=== PATIENT | male | born 1995 | race Hispanic/Latino ===

== ENCOUNTER → 2024-02-20 | Outpatient (CLI) | payer BC ==
[2024-02-20 16:40] LABS: ALBUMIN 3.9 g/dL (3.5-5.0); BILIRUBIN,TOTAL 0.8 mg/dL (0.2-1.0); CREATININE 0.8 mg/dL (0.5-1.3); MAGNESIUM 2.2 mg/dL (1.80-2.40); THYROID STIMULATING HORMONE 1.73 uIU/mL (0.36-3.74)
== END | disposition home or self-care (01) ==
LOC: LAB 02-10 13:37
PROVIDERS: ATTEND Internal Medicine Cardiovascular Disease
DX: R00.2 Palpitations (principal)
CPT/HCPCS: 36415; 80053; 83735; 84443

== ENCOUNTER → 2024-03-27 | Outpatient (CLI) | payer BC | END | disposition home or self-care (01) | LOC: SHCH 08:51 | PROVIDERS: ATTEND Internal Medicine Cardiovascular Disease | DX: R01.1 Cardiac murmur, unspecified (principal); E66.9 Obesity, unspecified | CPT/HCPCS: 93306 ==

== ENCOUNTER 2024-10-23 14:17 | Emergency (ER) | payer BC ==
[~2024-10-23] VITALS: Ht 177.8 cm; Wt 122.5 kg
[2024-10-23 15:56] LABS: BASOPHILS # (AUTO) 0.04 K/uL (0.00-0.20); BASOPHILS % (AUTO) 0.5 % (0.0-5.0); EOSINOPHILS % (AUTO) 1.2 % (0.0-8.0); IMMATURE GRANULOCYTE ABSOLUTE 0.03 K/uL (0-1); LYMPHOCYTES # (AUTO) 1.6 K/uL (1.0-4.8); LYMPHOCYTES % (AUTO) 18.7 % (21.0-51.0); MEAN CORPUSCULAR HEMOGLOBIN 31.4 pg (27.0-33.0); MEAN CORPUSCULAR HGB CONC 33.4 g/dL (32.0-36.0); MEAN CORPUSCULAR VOLUME 93.8 fL (79-99); MONOCYTES # (AUTO) 1.3 K/uL (0.1-1.0); MONOCYTES % (AUTO) 14.9 % (3.0-13.0); NEUTROPHILS # (AUTO) 5.5 K/uL (1.8-7.7); NEUTROPHILS % (AUTO) 64.3 % (40.0-77.0); PLATELET COUNT (AUTO) 332 K/uL (130-400); RED BLOOD CELL COUNT(AUTO) 4.37 MIL/uL (4.50-6.20); RED CELL DISTRIBUTION WIDTH 11.9 % (11.0-15.5); WHITE BLOOD COUNT (AUTO) 8.5 K/uL (4.8-10.8)
[2024-10-23 16:03] LABS: APPEARANCE,URINE CLEAR (CLEAR); BILIRUBIN,URINE 2 mg/dL (NEGATIVE); COLOR,URINE DARK-YELLOW (YELLOW); GLUCOSE, URINE (UA) NEGATIVE (NEGATIVE); KETONES,URINE 150 mg/dL (NEGATIVE); LEUKOCYTE ESTERASE ,URINE NEGATIVE Leu/uL (NEGATIVE); NITRATE,URINE NEGATIVE (NEGATIVE); OCCULT BLOOD,URINE NEGATIVE (NEGATIVE); PROTEIN,URINE 70 mg/dL (NEGATIVE); UROBILINOGEN,URINE 12 mg/dL (0.2-1.0)
[2024-10-23 16:13] LABS: BACTERIA,URINE RARE /HPF (None Seen); MUCUS,URINE MANY LPF (None Seen); SQUAMOUS EPITHELIAL CELL,UR RARE /HPF (0-2); WBC,URINE 0-1 /HPF (0-1)
[2024-10-23 16:21] LABS: CREATININE 0.8 mg/dL (0.5-1.3); POTASSIUM 3.4 mmol/L (3.5-5.1)
[2024-10-23 16:30] LABS: ALBUMIN 3.3 g/dL (3.5-5.0); BILIRUBIN,DIRECT 0.9 mg/dL (0.0-0.3); BILIRUBIN,TOTAL 2.1 mg/dL (0.2-1.0); TOTAL PROTEIN, SERUM 7.9 g/dL (6.0-8.3)
[2024-10-23 16:47] LABS: INR 1.04 (0.85-1.15); PROTHROMBIN TIME 11.6 SEC (9.6-11.6)
[2024-10-23 16:48] LABS: PARTIAL THROMBOPLASTIN TIME 31.6 SEC (26.3-35.5)
[2024-10-23] MEDS: ondanSETRON 4MG INJ IVP ONE (17:08)
[2024-10-23] MEDS: FAMOTIDINE 20MG VIAL IV ONE (17:08)
[2024-10-23] MEDS: morPHINE 2 MG SYG IVP ONE (17:08)
--- NOTE | 2024-10-23 18:42 | ERN ---
ED Note History of Present Illness Stated Complaint: MULT COMP, PAIN NEAR PANC Chief Complaint: Abdominal Pain Time Seen by MD: 17:25 Time Seen by Midlevel: 17:25 Dictation: Patient is a 29-year-old male with a history of gastric sleeve onset three weeks ago by Dr. Jackson who presents to the emergency department with complaints of epigastric pain, onset two days ago. Patient reports he had nausea and vomiting two days ago but none currently. Denies any diarrhea or constipation. Reports he was seen at [facility] ER and was told he had an inflamed pancreas. Today he saw Dr. Valencia and they did not ultrasound he said it was still inflamed but they gave him something for the medication isn't him home. Patient denies any fevers. Allergies: Coded Allergies: No Known Drug Allergies (Unverified Allergy, Unknown, 10/23/24) Home Meds Active Scripts Lidocaine (Lidocaine Pain Relief) 4 % Adh..patch, 1 PATCH TP DAILY for 10 Days, #10 PATCH 0 Refills Prov:CACHORRO COLEMAN FORMULATION TECHNICIAN 10/24/24 Past Medical History Past Medical History: No Pertinent History Surgical History: Bariatric Surgery RN Note Reviewed/Agreed w/PFSH: Yes Review of System Dictation Constitutional: Negative for fever,chills, and weight loss Eyes: Negative for injury, pain,redness, and discharge ENT: Negative for injury,pain or swelling Cardiovascular: Negative for chest pain, palpitations, and edema Respiratory: Negative for shortness of breath, cough, and wheezing, Abdomen/GI: Negative for nausea, vomiting, diarrhea, and constipation positive for abdominal pain Back: Negative for injury and pain : Negative for injury, bleeding and discharge MS/Extremity: Negative for injury and deformity Skin: Negative for rash, and discoloration Neuro: Negative for headache, weakness, numbness, tingling, and seizure Psych: Negative for suicide ideation, homicidal ideation, and hallucinations Initial Vital Sign VS Vital Signs Date Time Temp Pulse Resp B/P (MAP) Pulse Ox O2 Delivery O2 Flow Rate FiO2 10/23/24 15:18 98.6 85 20 135/94 96 Room Air 0 10/23/24 17:09 21 Physical Exam Dictation Vital Signs reviewed General Appearance: Alert, oriented x 3, no acute distress, well developed, nourished. Head and Face: non-traumatic. Eyes: PERRL, pink conjunctivas, eyelid no trauma, anterior chamber with arcus senilis. Ears: Pinnas intact and no signs of trauma or erythema ear canals clear and no discharge TM no erythema Nose: No discharge, no bleeding. Oropharynx: Mouth normal, tongue pink. pharynx clear,no erythema, tonsils no exudates, no abscesses noted, mucous membrane moist Neck: Supple, non-tender, no thyromegaly, no masses, no JVD, no bruits Breast:Deferred Chest:No tenderness, no crepitus, no paradoxical movement, no retractions Lungs:Clear, well-ventilated, symmetric, no rales, no wheezing, no rhonchi, no stridor, good breath sounds bilaterally Heart: Regular rate, regular rhythm, no murmur, no gallops Vascular: no peripheral edema, Abdomen: Soft, positive bowel sounds, nondistended, no guarding, nontender, no rebound, no masses no hepatomegaly, no splenomegaly, no Elizondo's sign, no hernias. Rectal: Deferred Genital: Deferred Neurological: Normal speech, motor function intact, sensory function intact Musculoskeletal: Neck nontender, full range of motion, back nontender, full range of motion, Extremities: nontender, full range of motion Skin: Color pink, dry, no turgor, no rash, no lacerations, no abrasions, no contusions. Lymphatic: Deferred Results (Laboratory/Radiology) Laboratory/Radiology Laboratory Tests Test 10/23/24 15:34 10/23/24 15:36 White Blood Count 8.5 K/uL (4.8-10.8) Red Blood Count 4.37 MIL/uL (4.50-6.20) L Hemoglobin 13.7 g/dL (14.0-18.0) L Hematocrit 41.0 % (42-54) L Mean Corpuscular Volume 93.8 fL (79-99) Mean Corpuscular Hemoglobin 31.4 pg (27.0-33.0) Mean Corpuscular Hemoglobin Concent 33.4 g/dL (32.0-36.0) Red Cell Distribution Width 11.9 % (11.0-15.5) Platelet Count 332 K/uL (130-400) Mean Platelet Volume 10.2 fL (7.5-10.5) Immature Granulocyte % (Auto) 0.4 % (0-1) Neutrophils (%) (Auto) 64.3 % (40.0-77.0) Lymphocytes (%) (Auto) 18.7 % (21.0-51.0) L Monocytes (%) (Auto) 14.9 % (3.0-13.0) H Eosinophils (%) (Auto) 1.2 % (0.0-8.0) Basophils (%) (Auto) 0.5 % (0.0-5.0) Neutrophils # (Auto) 5.5 K/uL (1.8-7.7) Lymphocytes # (Auto) 1.6 K/uL (1.0-4.8) Monocytes # (Auto) 1.3 K/uL (0.1-1.0) H Eosinophils # (Auto) 0.10 K/uL (0.00-0.70) Basophils # (Auto) 0.04 K/uL (0.00-0.20) Absolute Immature Granulocyte (auto 0.03 K/uL (0-1) Nucleated Red Blood Cells 0.0 % (0.0-0.19) Prothrombin Time 11.6 SEC (9.6-11.6) Prothromb Time International Ratio 1.04 (0.85-1.15) Activated Partial Thromboplast Time 31.6 SEC (26.3-35.5) Sodium Level 139 mmol/L (136-145) Potassium Level 3.4 mmol/L (3.5-5.1) L Chloride Level 100 mmol/L (101-111) L Carbon Dioxide Level 28 mmol/L (21-32) Blood Urea Nitrogen 7 mg/dL (7-18) Creatinine 0.8 mg/dL (0.5-1.3) Glomerular Filtration Rate Calc 123 mL/min (>90) Random Glucose 102 mg/dL (70-105) Lactic Acid Level 1.8 mmol/L (0.8-2.5) Total Calcium 9.3 mg/dL (8.5-10.1) Total Bilirubin 2.1 mg/dL (0.2-1.0) H Direct Bilirubin 0.9 mg/dL (0.0-0.3) H Aspartate Amino Transf (AST/SGOT) 33 U/L (10-37) Alanine Aminotransferase (ALT/SGPT) 46 U/L (12-78) Alkaline Phosphatase 110 U/L (50-136) Troponin I High Sensitivity 4 ng/L (4-75) Total Protein 7.9 g/dL (6.0-8.3) Albumin 3.3 g/dL (3.5-5.0) L Lipase 30 U/L (16-77) Urine Color DARK-YELLOW (YELLOW) Urine Appearance CLEAR (CLEAR) Urine pH 6.0 (5.0-8.0) Urine Specific [place] 1.038 (1.001-1.031) Urine Protein 70 mg/dL (NEGATIVE) H Urine Glucose (UA) NEGATIVE mg/dL (NEGATIVE) Urine Ketones 150 mg/dL (NEGATIVE) H Urine Occult Blood NEGATIVE (NEGATIVE) Urine Nitrate NEGATIVE (NEGATIVE) Urine Bilirubin 2 mg/dL (NEGATIVE) H Urine Urobilinogen 12 mg/dL (0.2-1.0) H Urine Leukocyte Esterase NEGATIVE [place]/uL Urine RBC 2-5 /HPF (0-1) H Urine WBC 0-1 /HPF (0-1) Urine Squamous Epithelial Cells RARE /HPF (0-2) Urine Bacteria RARE /HPF (None Seen) Urine Hyaline Casts 2-5 /LPF (0-1 /LPF) H REASON: Abdominal pain ORDERING PHYSICIAN: MARY CEDENO MD PROCEDURE: ABD PEL WO - CT ABDOMEN/PELVIS W/O CONTRAST Exam Type: CT ABDOMEN/PELVIS W/O CONTRAST Clinical Information: Abdominal pain Comparison: None CT Dose Index (CTDI): 10.20 mGy Dose Length Product (DLP): 530.00 total mGy-cm PROTOCOL: Routine noncontrast helical scanning of the abdomen and pelvis was performed at 5mm collimation. Findings: Right renal nonobstructing calculus is seen in the kidneys are otherwise unremarkable. The lung bases are clear. Bariatric surgical changes of the stomach which appears otherwise unremarkable. The spleen is unremarkable. It is not enlarged. The pancreas shows normal anatomy. It is not fatty replaced. It shows no lesions. The pancreatic duct is not dilated. The gallbladder is unremarkable. It shows no cholelithiasis. The gallbladder wall is normal in thickness. There is no pericholecystic fluid. The is no acute or chronic inflammation noted. The adrenal glands are unremarkable. There is no enlargement. No lesions are noted. The liver is unremarkable. It shows no focal masses. The appendix is unremarkable. It shows no evidence of inflammation. No appendicolith is seen. The small bowel is unremarkable. There is no evidence of dilatation to suggest obstruction. No evidence of adynamic ileus is seen. There is no small bowel wall thickening to suggest enteritis. The colon is unremarkable. The urinary bladder is unremarkable. There is no wall thickening to suggest tumor or inflammation. There are no intraluminal calculi. There are no diverticula. There is no evidence of chronic bladder outlet obstruction. There is no evidence of urinary bladder distention to suggest urinary retention. The other pelvic structures are unremarkable. The bony and vascular structures are unremarkable for the patient's age. IMPRESSION: NEGATIVE CT SCAN OF THE ABDOMEN AND PELVIS. NO RENAL STONES. NO ACUTE PATHOLOGY OR INFLAMMATION SEEN. This study was performed using dose reduction techniques to include automated exposure control and/or adjustment of the mA and/or kV according to patient size. Labs Reviewed?: Yes ED Course ED Course Orders Procedure Category Date Status Time Basic Metabolic Panel LAB 10/23/24 Complete 15:19 Cbc With Differential LAB 10/23/24 Complete 15:19 Hepatic Function Panel LAB 10/23/24 Complete 15:19 Lactic Acid LAB 10/23/24 Complete 15:19 Lipase LAB 10/23/24 Complete 15:19 Pt And Ptt LAB 10/23/24 Complete 15:19 Troponin I High LAB 10/23/24 Complete Sensitivity 15:19 Urinalysis LAB 10/23/24 Complete W/Microscopic 15:19 Ondansetron 4mg Inj PHA 10/23/24 Complete (Zofran 4mg Inj) 15:30 Morphine 2mg Syg PHA 10/23/24 Complete (Morphine 2mg Syg) 15:30 Famotidine 20mg Vial PHA 10/23/24 Complete (Pepcid 20mg Vial) 15:30 Ct Abdomen/Pelvis W/O CT 10/23/24 Resulted Contrast 18:05 Morphine 4mg Syg PHA 10/23/24 Complete (Morphine 4mg Syg) 20:00 Us Abdominal Ruq\Ltd US 10/23/24 Taken 21:16 Morphine 4mg Syg [facility] 10/23/24 Complete (Morphine 4mg Syg) 23:30 Ketorolac PHA 10/24/24 Complete Tromethamine 30mg/Ml 00:30 Orphenadrine Citrate PHA 10/24/24 Complete (Norflex) 01:00 Current Medications Medications (Trade) Dose Ordered Sig/Ezekiel Route PRN Reason Start Time Stop Time Status Last Admin Dose Admin Famotidine (Pepcid 20mg Vial) 20 mg ONCE ONCE IV 10/23/24 15:30 10/23/24 15:31 DC 10/23/24 17:08 Ketorolac Tromethamine (toRADol) 30 mg ONCE ONCE IVP 10/24/24 00:30 10/24/24 00:31 DC 10/24/24 00:25 Morphine Sulfate (morPHINE 2MG SYG) 2 mg ONCE ONCE IVP 10/23/24 15:30 10/23/24 15:31 DC 10/23/24 17:08 Morphine Sulfate (morPHINE 4MG SYG) 4 mg ONCE ONCE IVP 10/23/24 20:00 10/23/24 20:01 DC 10/23/24 20:03 Morphine Sulfate (morPHINE 4MG SYG) 4 mg ONCE ONCE IVP 10/23/24 23:30 10/23/24 23:31 DC 10/23/24 23:35 Ondansetron HCl (zoFRAN 4MG INJ) 4 mg ONCE ONCE IVP 10/23/24 15:30 10/23/24 15:31 DC 10/23/24 17:08 Orphenadrine Citrate (Norflex) 60 mg ONCE ONCE IM 10/24/24 01:00 10/24/24 01:01 DC 10/24/24 01:07 Vital Signs Date Time Temp Pulse Resp B/P (MAP) Pulse Ox O2 Delivery O2 Flow Rate FiO2 10/24/24 01:19 98.4 89 17 145/92 96 Room Air* 0 10/23/24 23:21 98.8 86 17 146/85 97 Room Air* 0 10/23/24 21:38 91 17 140/75 100 Room Air* 0 10/23/24 19:45 98.4 90 18 142/80 100 Room Air* 0 10/23/24 18:39 98.8 87 20 147/87 97 Room Air* 0 10/23/24 17:09 82 18 158/95 97 Room Air* 0 10/23/24 15:18 98.6 85 20 135/94 96 Room Air 0 Medical Decision Making MDM Patient is a 29-year-old male with a history of gastric sleeve onset three weeks ago by Dr. Jackson who presents to the emergency department with complaints of epigastric pain, onset two days ago. Patient reports he had nausea and vomiting two days ago but none currently. Denies any diarrhea or constipation. Reports he was seen at [facility] ER and was told he had an inflamed pancreas. Today he saw Dr. Jackson and they did not ultrasound he said it was still inflamed but they gave him something for the medication isn't him home. Patient denies any fevers. CBC showed no leukocytosis, mild normocytic anemia, chemistry showed mild hypokalemia, mild hypochloremia, urinalysis showed no UTI. CT abdomen showed right renal stone. No other acute pathology. Patient received medication in ER. Patient in no acute distress.reports feeling better. Nontoxic appearing. Will be discharged to follow up with the surgeon and PCP. Discussed case with who agrees patient can be discharge. Spoke to patient about results and the need to follow up with pcp and surgeon. Differential diagnosis: Bowel obstruction, sepsis, electrolyte imbalance, pancreatitis, cholecystectomy Need for hospitalization: Patient does not meet criteria for hospitalization. There are no social concerns with this patient. DX & DISP Disposition: Discharge Departure Impression: Primary Impression: Abdominal pain Additional Impression: Right renal stone Condition: Stable Scripts Methocarbamol (Robaxin) 750 Mg Tab 1 TAB PO TID for 5 Days, #15 TAB 0 Refills Prov: CACHORRO COLEMAN FORMULATION TECHNICIAN 10/24/24 Lidocaine (Lidocaine Pain Relief) 4 % Adh..patch 1 PATCH TP DAILY for 10 Days, #10 PATCH 0 Refills Prov: CACHORRO COLEMAN FORMULATION TECHNICIAN 10/24/24 Additional Instructions: Please follow up with your surgeon in 1-2 days. If symptoms worsen please return to ER. FOLLOW-UP WITH PRIMARY CARE PROVIDER IN 1 TO 2 DAYS. TAKE MEDICATIONS DIRECTED HERE IN THE EMERGENCY ROOM. OKAY TO CONTINUE HOME MEDICATIONS UNLESS OTHERWISE DISCUSSED DURING YOUR VISIT IN THE EMERGENCY ROOM TODAY. RETURN TO YOUR NEAREST EMERGENCY ROOM IF SYMPTOMS WORSEN OR IF THERE IS NO IMPROVEMENT. CALL 911 IF YOU NEED IMMEDIATE ASSISTANCE. TAKE TYLENOL OR MOTRIN [id number] NEEDED AND IF NO CONTRAINDICATIONS ARE PRESENT. INCREASE ORAL HYDRATION. A WOUND CULTURE OR URINE CULTURE WAS ORDERED HERE IN THE EMERGENCY ROOM DEPARTMENT PLEASE FOLLOW-UP WITH PRIMARY CARE PROVIDER AND ADVISE THEM TO GET REPEAT PORTS FROM OUR FACILITY. IF YOU HAD ANY ANDREIA WRAP/SPLINTS THAT WERE APPLIED HERE, PLEASE DO NOT REMOVE THEM UNTIL YOU SEE YOUR PRIMARY CARE OR SPECIALTY. Referrals: CINTHIA DE LA O (PCP) Time of Disposition: 00:13 I have examined patient, & reviewed all documents, & agreed W/ the Diagnosis, and Plan CACHORRO COLEMAN FORMULATION TECHNICIAN Oct 23, 2024 18:42
--- NOTE | 2024-10-23 19:29 | HMCIMG ---
Exam Type: CT ABDOMEN/PELVIS W/O CONTRAST Clinical Information: Abdominal pain Comparison: None CT Dose Index (CTDI): 10.20 mGy Dose Length Product (DLP): 530.00 total mGy-cm PROTOCOL: Routine noncontrast helical scanning of the abdomen and pelvis was performed at 5mm collimation. Findings: Right renal nonobstructing calculus is seen in the kidneys are otherwise unremarkable. The lung bases are clear. Bariatric surgical changes of the stomach which appears otherwise unremarkable. The spleen is unremarkable. It is not enlarged. The pancreas shows normal anatomy. It is not fatty replaced. It shows no lesions. The pancreatic duct is not dilated. The gallbladder is unremarkable. It shows no cholelithiasis. The gallbladder wall is normal in thickness. There is no pericholecystic fluid. The is no acute or chronic inflammation noted. The adrenal glands are unremarkable. There is no enlargement. No lesions are noted. The liver is unremarkable. It shows no focal masses. The appendix is unremarkable. It shows no evidence of inflammation. No appendicolith is seen. The small bowel is unremarkable. There is no evidence of dilatation to suggest obstruction. No evidence of adynamic ileus is seen. There is no small bowel wall thickening to suggest enteritis. The colon is unremarkable. The urinary bladder is unremarkable. There is no wall thickening to suggest tumor or inflammation. There are no intraluminal calculi. There are no diverticula. There is no evidence of chronic bladder outlet obstruction. There is no evidence of urinary bladder distention to suggest urinary retention. The other pelvic structures are unremarkable. The bony and vascular structures are unremarkable for the patient's age. IMPRESSION: NEGATIVE CT SCAN OF THE ABDOMEN AND PELVIS. NO RENAL STONES. NO ACUTE PATHOLOGY OR INFLAMMATION SEEN. This study was performed using dose reduction techniques to include automated exposure control and/or adjustment of the mA and/or kV according to patient size.
[2024-10-23] MEDS: morPHINE 4 MG SYG IVP ONE ×2 (20:03→23:35)
--- NOTE | 2024-10-23 22:33 | NUR ---
PATIENT STILL PENDING U/S, INCREASING PAIN IN BACK, PACING HALLWAY
[2024-10-24] MEDS: ketOROlac 30MG VIAL (30MG/ML) IVP ONE (00:25)
[2024-10-24] MEDS ORDERED: LIDO1ADH71 TP (00:53)
[2024-10-24] MEDS: ORPHENADRINE 60MG/2ML IM ONE (01:07)
[2024-10-24 01:19] VITALS: BP 145/92; PULSE 89; RESP 17; TEMP 98.4; O2SAT 96
[2024-10-24] MEDS ORDERED: METH-662 PO (01:28)
--- NOTE | 2024-10-24 08:22 | HMCIMG ---
Exam Type: Right upper quadrant abdominal ultrasound with hepatic color-flow Doppler Clinical Information: abd pain Comparison: none Findings: The liver shows fatty infiltration and is otherwise unremarkable. Doppler evaluation shows patent portal and hepatic veins. The gallbladder shows no significant abnormalities. Specifically, no calculi are seen. There is no evidence of acute or chronic cholecystitis. No bile duct dilatation is noted. The gallbladder wall measures 2 mm. The common bile duct measures 3 mm. The right kidney measures 11 x 6 cm, and shows no hydronephrosis or calculi, masses or other abnormalities. The pancreas is suboptimally visualized. IMPRESSION: FATTY LIVER INFILTRATION. OTHERWISE NORMAL RIGHT UPPER QUADRANT ABDOMINAL ULTRASOUND.
[2024-10-25] MEDS ORDERED: PANT40TA54 PO (04:47)
[2024-10-25] MEDS ORDERED: PROP20TA96 PO (04:47)
== END 2024-10-24 01:32 | disposition home or self-care (01) ==
LOC: EDH 14:17
DX: N20.0 Calculus of kidney (principal); Z79.899 Other long term (current) drug therapy; Z98.890 Other specified postprocedural states
CPT/HCPCS: 99285; 74176; 96374; 76705; 96375 ×2; 80076; 84484; 80048; 83690; 85025; 85610; 85730; 83605; 81001; 36415; 96376; 96372; J3490; J2270 ×3; J2405; J1885; J2360

== ENCOUNTER → 2025-04-07 | Outpatient (CLI) | payer BC ==
[~2025-04-07] MED LIST: LIDO1ADH71 TP; PANT40TA54 PO; PROP20TA96 PO
--- NOTE | 2025-04-07 10:04 | HMCIMG ---
Exam Type: US ABDOMINAL RUQ\E\LTD Clinical Information: portal vein thrombosis Comparison: None Findings: The liver is enlarged with coarse echotexture suggestive of cirrhosis. It measures 16.3 cm. There is partial thrombosis of the portal vein, further evidence of possible cirrhosis. Doppler evaluation shows patent portal and hepatic veins. The gallbladder shows evidence of cholelithiasis. There is no evidence of acute or chronic cholecystitis. No bile duct dilatation is noted. The gallbladder wall measures 2 mm. The common bile duct measures 3 mm. The right kidney measures 11 x 5.1 cm- it shows no hydronephrosis and there is an upper pole nonobstructing calculus measuring 6 mm. The pancreas is unremarkable. The aorta and inferior vena cava show no significant abnormalities. IMPRESSION: 0 some partial thrombosis of the portal vein. Cholelithiasis.
== END | disposition home or self-care (01) ==
LOC: RAH 08:32
PROVIDERS: ATTEND Internal Medicine Medical Oncology
DX: N20.0 Calculus of kidney (principal); K80.20 Calculus of gallbladder without cholecystitis without obstruction; R16.0 Hepatomegaly, not elsewhere classified; I81 Portal vein thrombosis
CPT/HCPCS: 76705

== ENCOUNTER 2025-06-25 22:36 | Emergency (ER) | payer BC ==
[~2025-06-25] VITALS: Ht 177.8 cm; Wt 102.5 kg
--- NOTE | 2025-06-25 22:43 | NUR ---
UA CUP PROVIDED
--- NOTE | 2025-06-25 22:44 | NUR ---
REPORT TO [facility]
[2025-06-25] MEDS ORDERED: IOHEXOL-350 75 ML VIAL IV ONE (23:04)
--- NOTE | 2025-06-25 23:06 | ERN ---
ED Note History of Present Illness Stated Complaint: RT LOWER QUADRANT PAIN Chief Complaint: Abdominal Pain Time Seen by MD: 22:53 Dictation: This is a 29-year-old male who presented to the emergency room with complaints of right upper and right lower quadrant abdominal pain going on for 3 days. He reports it as cramping and sharp stabbing pain. He has had loose stools associated with this. He had a sleeve gastrectomy many years ago and eventually developed portal vein thrombosis in November of 2024. He remained hospitalized for 1-1/2 months at that time at [facility] and eventually was transferred to [place] for a partial thrombectomy. He has been on Eliquis twice a day since then. He was also told he may have a right kidney stone. He denied any nausea vomitings hematemesis or melena. 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 Temperature 98 pulse 81 respirations 20 blood pressure 148/85 with a pulse oximetry of 98% on room air Sleeve gastrectomy for weight loss, portal vein thrombosis status post partial thrombectomy, right-sided nephrolithiasis Allergies: Coded Allergies: No Known Drug Allergies (Unverified Allergy, Unknown, 10/23/24) Home Meds Active Scripts Ketorolac Tromethamine (Toradol) 10 Mg Tab, 10 MG PO TID for pain for 5 Days, #15 TAB 0 Refills Prov:ANNE SIDDIQUI MD 06/26/25 Tamsulosin HCl (Flomax) 0.4 Mg Cap.er.24h, 1 CAP PO DAILY for 30 Days, #30 CAP 0 Refills Prov:ANNE SIDDIQUI MD 06/26/25 Lidocaine (Lidocaine Pain Relief) 4 % Adh..patch, 1 PATCH TP DAILY for 10 Days, #10 PATCH 0 Refills Prov:CACHORRO COLEMAN 10/24/24 Reported Medications Propranolol HCl (Inderal) 20 Mg Tab, 1 TAB PO BID 10/25/24 Pantoprazole Sodium (Pantoprazole Sodium) 40 Mg Tablet.dr, 1 TAB PO DAILY for 30 Days, #30 TAB 0 Refills 10/25/24 Past Medical History Past Medical History: Kidney Stone, Other Additional Past Medical Hx: PORTALVEIN THROMBOSIS Surgical History: Other, Bariatric Surgery Surgical History Other: THROMBECTOMY Family History: Negative RN Note Reviewed/Agreed w/PFSH: Yes Review of System Dictation Constitutional: Negative for fever,chills, and weight loss Eyes: Negative for injury, pain,redness, and discharge ENT: Negative for injury,pain or swelling Cardiovascular: Negative for chest pain, palpitations, and edema Respiratory: Negative for shortness of breath, cough, and wheezing, Abdomen/GI: Positive for abdominal pain, diarrhea, and denied constipation nausea, vomiting, Back: Negative for injury and pain : Negative for injury, bleeding and discharge MS/Extremity: Negative for injury and deformity Skin: Negative for rash, and discoloration Neuro: Negative for headache, weakness, numbness, tingling, and seizure Psych: Negative for suicide ideation, homicidal ideation, and hallucinations Initial Vital Sign VS Vital Signs Date Time Temp Pulse Resp B/P (MAP) Pulse Ox O2 Delivery O2 Flow Rate FiO2 06/25/25 22:37 98.1 81 20 148/85 98 Room Air Physical Exam Dictation General: awake, alert, NAD overweight not in any acute distress Head/Face: Normocephalic, atraumatic Eyes: PERRL, EOMI, vision at baseline ENT: oral cavity clear, TMs clear, no signs of infection Neck: Trachea midline, supple, no nuchal rigidity Cardiovascular: RRR, normal S1/S2, No MRGs, no JVD Respiratory: CTAB, no respiratory distress, No rales or wheezes Abdomen: Soft, mild tenderness in the right upper quadrant and right side of the abdomen, non-distended, normal bowel sounds, no guarding or rebound. Well- healed scars of laparoscopic sleeve gastrectomy noted Skin: Warm, dry, normal turgor, no rash MS/Extremity: Pulses equal, no cyanosis, neurovascular intact, FROM Neuro: COAx4, GCS 15, strength 5/5, CN 2-12 intact, normal cerebellar exam, normal gait, Psych: Normal behavior, mood, and affect normal Extremities-trace edema without any palpable cords, Homans sign is negative Results (Laboratory/Radiology) Laboratory/Radiology Laboratory Tests Test 06/25/25 23:26 06/26/25 00:36 White Blood Count 5.2 K/uL (4.8-10.8) Red Blood Count 4.75 MIL/uL (4.50-6.20) Hemoglobin 14.4 g/dL (14.0-18.0) Hematocrit 42.6 % (42-54) Mean Corpuscular Volume 89.7 fL (79-99) Mean Corpuscular Hemoglobin 30.3 pg (27.0-33.0) Mean Corpuscular Hemoglobin Concent 33.8 g/dL (32.0-36.0) Red Cell Distribution Width 13.0 % (11.0-15.5) Platelet Count 174 K/uL (130-400) Mean Platelet Volume 9.2 fL (7.5-10.5) Immature Granulocyte % (Auto) 0.2 % (0-1) Neutrophils (%) (Auto) 64.2 % (40.0-77.0) Lymphocytes (%) (Auto) 27.6 % (21.0-51.0) Monocytes (%) (Auto) 6.5 % (3.0-13.0) Eosinophils (%) (Auto) 1.1 % (0.0-8.0) Basophils (%) (Auto) 0.4 % (0.0-5.0) Neutrophils # (Auto) 3.4 K/uL (1.8-7.7) Lymphocytes # (Auto) 1.4 K/uL (1.0-4.8) Monocytes # (Auto) 0.3 K/uL (0.1-1.0) Eosinophils # (Auto) 0.06 K/uL (0.00-0.70) Basophils # (Auto) 0.02 K/uL (0.00-0.20) Absolute Immature Granulocyte (auto 0.01 K/uL (0-1) Nucleated Red Blood Cells 0.0 % (0.0-0.19) Sodium Level 138 mmol/L (136-145) Potassium Level 4.0 mmol/L (3.5-5.1) Chloride Level 102 mmol/L (101-111) Carbon Dioxide Level 32 mmol/L (21-32) Blood Urea Nitrogen 13 mg/dL (7-18) Creatinine 0.8 mg/dL (0.5-1.3) Glomerular Filtration Rate Calc 123 mL/min (>90) Random Glucose 135 mg/dL (70-105) H Total Calcium 8.7 mg/dL (8.5-10.1) Total Bilirubin 1.6 mg/dL (0.2-1.0) H Aspartate Amino Transf (AST/SGOT) 30 U/L (10-37) Alanine Aminotransferase (ALT/SGPT) 51 U/L (12-78) Alkaline Phosphatase 125 U/L (50-136) Total Creatine Kinase 63 U/L (21-232) Total Protein 7.8 g/dL (6.0-8.3) Albumin 3.8 g/dL (3.5-5.0) Lipase 44 U/L (16-77) Urine Color YELLOW (YELLOW) Urine Appearance CLEAR (CLEAR) Urine pH 6.0 (5.0-8.0) Urine Specific [place] > 1.050 (1.001-1.031) Urine Protein NEGATIVE mg/dL (NEGATIVE) Urine Glucose (UA) NEGATIVE mg/dL (NEGATIVE) Urine Ketones NEGATIVE mg/dL (NEGATIVE) Urine Occult Blood NEGATIVE (NEGATIVE) Urine Nitrate NEGATIVE (NEGATIVE) Urine Bilirubin NEGATIVE mg/dL (NEGATIVE) Urine Urobilinogen 2.0 mg/dL (0.2-1.0) H Urine Leukocyte Esterase NEGATIVE [place]/uL Urine RBC 0-1 /HPF (0-1) Urine WBC 0-1 /HPF (0-1) Urine Squamous Epithelial Cells RARE /HPF (0-2) Urine Bacteria RARE /HPF (None Seen) Labs Reviewed?: Yes CT Scan Comment: REASON: Abdominal Pain ORDERING PHYSICIAN: ANNE SIDDIQUI MD PROCEDURE: ABD PEL W - CT ABDOMEN/PELVIS W/CONTRAST EXAM: CT Abdomen and Pelvis with IV contrast. CLINICAL HISTORY: Pain. TECHNIQUE: Thin collimated axial CT images of the abdomen and pelvis were obtained, with sagittal and coronal reformatted images also submitted. A CT scan is done according to ALARA (As Low As Reasonably Achievable). CONTRAST: Omnipaque 350. COMPARISON: CT Abdomen and Pelvis. 10/29/2024. FINDINGS: Unremarkable visualized lung parenchyma. There is no focal abnormality appreciated within the gallbladder, or adrenals. Interval mild enlargement of the pancreas. 0.2 cm nonobstructive calculus at the right renal midpole. Lobulated hepatic contour with volume redistribution, concerning liver cirrhosis. Portal cavernoma. Mild splenomegaly. There is no obvious bowel wall thickening. Bowel loops are normal in caliber without evidence of obstruction or ileus. Mesenteric panniculitis. Mild constipation. The appendix is unremarkable. There is no abnormality within the urinary bladder. Unremarkable reproductive organs. No lymphadenopathy. No free fluid. No pneumoperitoneum. No gross abnormality in the abdominal vessels. There is no acute osseous abnormality. IMPRESSIONS: Interval enlargement of the pancreas, the possibility of mild form of acute pancreatitis cannot be entirely excluded. Recommend serum amylase and lipase evaluation. Liver cirrhosis. Interval development of portal cavernoma. Interval splenomegaly. Stable mesenteric panniculitis. Mild constipation. Stable nonobstructive right renal calculus. /Kenvir DICTATED BY: MYRANDA HILL Jr., MD DATE: 06/26/25227 ELECTRONICALLY SIGNED BY: MYRANDA HILL Jr., MD DATE: 06/26/25227 ED Course ED Course Orders Procedure Category Date Status Time Cbc With Differential LAB 06/25/25 Complete 23:04 Basic Metabolic Panel LAB 06/25/25 Complete 23:04 Comprehensive LAB 06/25/25 Complete Metabolic Panel 23:04 Ct Abdomen/Pelvis CT 06/25/25 Resulted W/Contrast 23:04 Creatine Kinase, Total LAB 06/25/25 Complete 23:04 Lipase LAB 06/25/25 Complete 23:04 Iohexol (Omnipaque) PHA 06/26/25 Complete 00:04 Hydromorphone 0.5mg PHA 06/26/25 Complete Syg (Dilaudid 0.5mg 01:00 Urinalysis LAB 06/26/25 Complete W/Microscopic 00:36 Current Medications Medications (Trade) Dose Ordered Sig/Ezekiel Route PRN Reason Start Time Stop Time Status Last Admin Dose Admin Hydromorphone HCl (DiLAUDid 0.5MG INJ) 0.5 mg ONCE ONCE IVP 06/26/25 01:00 06/26/25 01:01 DC 06/26/25 00:55 Iohexol (Omnipaque) 75 ml STK-MED ONCE IV 06/26/25 00:04 06/26/25 00:04 DC Vital Signs Date Time Temp Pulse Resp B/P (MAP) Pulse Ox O2 Delivery O2 Flow Rate FiO2 06/25/25 22:37 98.1 81 20 148/85 98 Room Air We will perform diagnostic labs, advanced imaging and administer medications according to the patient's complaint. Once the results are available, will review and personally interpreted the labs to rule out any acute life- threatening emergency the trach require immediate intervention and treatment. I will then re-evaluate the patient after treatment and diagnostic exams have return to determine whether the patient requires any further testing, can safely be discharged home or need further admission to hospital for additional treatment and evaluation. 12:41 a.m.-CBC CMP with a normal limits. Total bilirubin 1.[address] scan of the abdomen and pelvis is pending at this time 1:[address] scan of the abdomen pelvis results finally released-patient has multiple changes-0.2 mm renal stone in the right renal pole. There was also evidence of moderate constipation. Pancreas was slightly enlarged but patient does not have any elevated lipase or clinical pancreatitis. Patient also has portal cavernoma and mesenteric panniculitis that is stable. I updated the patient his partner and his mother was on the phone listening in- on available blood work and CT scan findings and informed them that there is no evidence of hydronephrosis hydroureter and the acute pain which started today could be related to renal colic. With a possibility would be constipation. He denied alcohol intake mild pancreas inflammation would not be causing anatomically right-sided abdominal pain. Patient needs to be followed by alcoholism worker to keep an eye on the mesenteric panniculitis which seems to be stable at this time however any further sclerosing changes may warrant glu cocorticoids and additional hormonal therapy or immunosuppressants. Medical Decision Making MDM Differential diagnosis: Cholecystitis, recurrent portal vein thrombosis, renal colic, peptic ulcer disease, pancreatitis, appendicitis, colitis Rationale: Tests considered and ordered secondary to shared decision making include: Previous outside records reviewed: Old ER visits. Risk of complication and/or morbidity or mortality of patient management: None Medications-Per medication reconciliation Need for hospitalization: Patient does not meet criteria for hospitalization. Need for emergency major/minor surgery: No There are no social concerns with this patient. Prescription drug management Prescriptions will include symptomatic care Patient's prior external medical records from other ER visits were reviewed by me as indicated. Prior testing and results from previous visits were reviewed. Prior tests were taken into account with medical decision making and resource utilization, independent historian/historians were used to obtain complete medical history. I independently interpreted the test that were performed, results were reviewed by me and considered findings on radiology if ordered. Medical management and examination interpretation discussions were had by me with other qualified healthcare professionals as indicated for the patient's care. DX & DISP Disposition: Discharge Departure Impression: Primary Impression: Renal colic on right side Additional Impressions: Right renal stone, Portal vein thrombosis, retirement current use of anticoagulant therapy, Mesenteric panniculitis Condition: Stable Scripts Ketorolac Tromethamine (Toradol) 10 Mg Tab 10 MG PO TID for pain for 5 Days, #15 TAB 0 Refills Prov: ANNE SIDDIQUI MD 06/26/25 Tamsulosin HCl (Flomax) 0.4 Mg Cap.er.24h 1 CAP PO DAILY for 30 Days, #30 CAP 0 Refills Prov: ANNE SIDDIQUI MD 06/26/25 Additional Instructions: Patient and the caregiver have been informed of all the diagnostic tests and the imaging conducted during the today's visit to the emergency room and has verbalized understanding of the results I have personally reviewed and interpreted all diagnostic exams performed here in the ER today as well as the vital signs documented by the nursing staff. The patient is now being discharged to home and should follow up with the primary care physician or the specialist as directed by the ER staff. Follow-up with primary care provider in 1 to 2 days. Take medications as directed here in the emergency room. Okay to continue home medications unless otherwise discussed during your visit in the emergency room today. Return to your nearest emergency room if symptoms worsen or if there is no improvement. Call 911 if you need immediate assistance. Take Tylenol or Motrin [id number] as needed and if no contraindications are present. Increase oral hydration. A wound culture or urine culture was ordered here in the emergency room department please follow-up with primary care provider and advise them to get repeat ports from our facility. If you had any Neo wrap/splints that were applied here, please do not remove them until you see your primary care or specialty. Referrals: LOPEZ STILES (PCP) IBAN MCKENNA MD, ANURADHA R MD Jun 25, 2025 23:06
--- NOTE | 2025-06-25 23:28 | NUR ---
TRIAGE EDIT TO CORRECT MISSPELLING OF 'KIDNEY'
[2025-06-25 23:34] LABS: IMMATURE GRANULOCYTE ABSOLUTE 0.01 K/uL (0-1); NUCLEATED RED BLOOD CELLS 0.0 % (0.0-0.19); PLATELET COUNT (AUTO) 174 K/uL (130-400); RED BLOOD CELL COUNT(AUTO) 4.75 MIL/uL (4.50-6.20); RED CELL DISTRIBUTION WIDTH 13.0 % (11.0-15.5); WHITE BLOOD COUNT (AUTO) 5.2 K/uL (4.8-10.8)
[2025-06-25 23:43] LABS: CREATININE 0.8 mg/dL (0.5-1.3); GLOMERULAR FILTR. RATE CALC 123.0 mL/min (>90); GLUCOSE,RANDOM 135.0 mg/dL (70-105); SODIUM SERUM 138.0 mmol/L (136-145); UREA NITROGEN, BLOOD 13.0 mg/dL (7-18)
[2025-06-25 23:48] LABS: ASPARTATE AMINOTRANSFERASE 30.0 U/L (10-37); CREATINE KINASE, TOTAL 63.0 U/L (21-232); TOTAL PROTEIN, SERUM 7.8 g/dL (6.0-8.3)
[2025-06-26] MEDS ORDERED: IOHEXOL-350 75 ML VIAL IV ONE (00:04)
[2025-06-26 00:57] LABS: APPEARANCE,URINE CLEAR (CLEAR); GLUCOSE, URINE (UA) NEGATIVE (NEGATIVE); LEUKOCYTE ESTERASE ,URINE NEGATIVE Leu/uL (NEGATIVE); NITRATE,URINE NEGATIVE (NEGATIVE); OCCULT BLOOD,URINE NEGATIVE (NEGATIVE); SQUAMOUS EPITHELIAL CELL,UR RARE /HPF (0-2)
--- NOTE | 2025-06-26 01:29 | HMCIMG ---
EXAM: CT Abdomen and Pelvis with IV contrast. CLINICAL HISTORY: Pain. TECHNIQUE: Thin collimated axial CT images of the abdomen and pelvis were obtained, with sagittal and coronal reformatted images also submitted. A CT scan is done according to ALARA (As Low As Reasonably Achievable). CONTRAST: Omnipaque 350. COMPARISON: CT Abdomen and Pelvis. 10/29/2024. FINDINGS: Unremarkable visualized lung parenchyma. There is no focal abnormality appreciated within the gallbladder, or adrenals. Interval mild enlargement of the pancreas. 0.2 cm nonobstructive calculus at the right renal midpole. Lobulated hepatic contour with volume redistribution, concerning liver cirrhosis. Portal cavernoma. Mild splenomegaly. There is no obvious bowel wall thickening. Bowel loops are normal in caliber without evidence of obstruction or ileus. Mesenteric panniculitis. Mild constipation. The appendix is unremarkable. There is no abnormality within the urinary bladder. Unremarkable reproductive organs. No lymphadenopathy. No free fluid. No pneumoperitoneum. No gross abnormality in the abdominal vessels. There is no acute osseous abnormality. IMPRESSIONS: Interval enlargement of the pancreas, the possibility of mild form of acute pancreatitis cannot be entirely excluded. Recommend serum amylase and lipase evaluation. Liver cirrhosis. Interval development of portal cavernoma. Interval splenomegaly. Stable mesenteric panniculitis. Mild constipation. Stable nonobstructive right renal calculus. /Mercedes
[2025-06-26] MEDS ORDERED: TAMS-55 PO (01:49)
[2025-06-26] MEDS ORDERED: KETO10 PO (01:49)
[2025-06-26 02:17] VITALS: BP 134/80; PULSE 76; RESP 18; TEMP 98.4; O2SAT 99
== END 2025-06-26 02:18 | disposition home or self-care (01) ==
LOC: EDH 22:36
DX: I81 Portal vein thrombosis (principal); N23 Unspecified renal colic; K65.4 Sclerosing mesenteritis; Z79.01 Long term (current) use of anticoagulants; Z79.1 Long term (current) use of non-steroidal anti-inflammatories (NSAID); Z79.899 Other long term (current) drug therapy
CPT/HCPCS: 99284; 74177; 82550; 80053; 83690; 85025; 81001; 36415; 96374; Q9967; J1171

== ENCOUNTER 2025-10-26 10:59 | Emergency (ER) | payer BC ==
[~2025-10-26] VITALS: Ht 177.8 cm; Wt 101.6 kg
[~2025-10-26 10:59] MED LIST changes: +AMOX1TAB16 PO; +APIX5TAB PO; +IBUP-2077 PO; -LIDO1ADH71 TP; -PANT40TA54 PO; -PROP20TA96 PO
--- NOTE | 2025-10-26 11:04 | ERN ---
ED Note History of Present Illness Stated Complaint: RT FLANK PAIN Chief Complaint: Flank Pain Time Seen by MD: 11:01 Dictation: PATIENT IS A 30-YEAR-OLD MALE COMING IN TODAY WITH A ONSET OF RIGHT FLANK PAIN THAT RADIATES TO RIGHT LOWER QUADRANT AND TESTICLE ONSET WAS FOUR DAYS PRIOR TO ARRIVAL. HE STATES IT STARTED OUT VERY MILD AND THEN HAS BEEN CRESCENDOING OVER THE LAST 2-3 DAYS. HE DENIES FEVER CHILLS NAUSEA WITHOUT VOMITING. HE DID NOT SEE HIS PRIMARY CARE DOCTOR AND STATES HE DOES HAVE A HISTORY OF KIDNEY STONES. Allergies: Coded Allergies: No Known Drug Allergies (Unverified Allergy, Unknown, 10/23/24) Home Meds Active Scripts Ibuprofen (Ibuprofen 800 mg Tab) 800 Mg Tab, 1 TAB PO TID for pain for 3 Days, #9 TAB 0 Refills Prov:EMILY SINGH IV, MD 08/10/25 Amoxicillin/Potassium Clav (Amox Tr-K Clv 875-125 mg Tab) 875 Mg-125 Mg Tablet, 1 TAB PO BID for 5 Days, #10 TAB 0 Refills Prov:EMILY SINGH IV, MD 08/10/25 Reported Medications Apixaban (Eliquis) 5 Mg Tablet, 1 TAB PO BID for 30 Days, #60 TAB 0 Refills 08/08/25 Past Medical History Past Medical History: Kidney Stone, Other Additional Past Medical Hx: PORTAL VEIN THROMBOSIS Surgical History: Other, Bariatric Surgery Surgical History Other: THROMBECTOMY Family History: Negative RN Note Reviewed/Agreed w/PFSH: Yes Review of System Dictation CONSTITUTIONAL: NEGATIVE EXCEPT FOR HPI HEAD/FACE: NEGATIVE EXCEPT FOR HPI EENT: NEGATIVE EXCEPT FOR HPI RESPIRATORY: NEGATIVE EXCEPT FOR HPI GASTROINTESTINAL/ABDOMINAL: NEGATIVE EXCEPT FOR HPI RIGHT FLANK PAIN THAT RADIATES TO RIGHT LOWER QUADRANT AND RIGHT TESTICLE GENITOURINARY: NEGATIVE EXCEPT FOR HPI MUSCULOSKELETAL: NEGATIVE EXCEPT FOR HPI INTEGUMENTARY: NEGATIVE EXCEPT FOR HPI NEUROLOGICAL/PSYCH: NEGATIVE EXCEPT FOR HPI HEMATOLOGIC/LYMPHATIC: NEGATIVE EXCEPT FOR HPI ALL SYSTEMS NEGATIVE, EXCEPT NOTED ABOVE. 13 POINT REVIEW OF SYSTEMS ASSESSED AND ALL NEGATIVE EXCEPT FOR ABOVE. Initial Vital Sign VS Vital Signs Date Time Temp Pulse Resp B/P (MAP) Pulse Ox O2 Delivery O2 Flow Rate FiO2 10/26/25 11:00 98.4 82 20 150/88 99 10/26/25 14:13 Room Air* 0 21 Physical Exam Dictation VITAL SIGNS REVIEWED GENERAL APPEARANCE: ALERT, ORIENTED X 3, SEVERE ACUTE DISTRESS, WELL DEVELOPED, NOURISHED. HEAD AND FACE: NON-TRAUMATIC. EYES: PERRL, PINK CONJUNCTIVAS, EYELID NO TRAUMA, ANTERIOR CHAMBER WITH ARCUS SENILIS. EARS: PINNAS INTACT AND NO SIGNS OF TRAUMA OR ERYTHEMA EAR CANALS CLEAR AND NO DISCHARGE TM NO ERYTHEMA NOSE: NO DISCHARGE, NO BLEEDING. OROPHARYNX: MOUTH NORMAL, TONGUE PINK, PHARYNX CLEAR,NO ERYTHEMA, TONSILS NO EXUDATES, NO ABSCESSES NOTED, MUCOUS MEMBRANE MOIST NECK: SUPPLE, NON-TENDER, NO THYROMEGALY, NO MASSES, NO JVD, NO BRUITS BREAST:DEFERRED CHEST:NO TENDERNESS, NO CREPITUS, NO PARADOXICAL MOVEMENT, NO RETRACTIONS LUNGS:CLEAR, WELL-VENTILATED, SYMMETRIC, NO RALES, NO WHEEZING, NO RHONCHI, NO STRIDOR, GOOD BREATH SOUNDS BILATERALLY HEART: REGULAR RATE, REGULAR RHYTHM, NO MURMUR, NO GALLOPS VASCULAR: NO PERIPHERAL EDEMA, ABDOMEN: SOFT, POSITIVE BOWEL SOUNDS, NONDISTENDED, NO GUARDING, NONTENDER, NO REBOUND, NO MASSES NO HEPATOMEGALY, NO SPLENOMEGALY, NO FARFAN'S SIGN, NO HERNIAS. RECTAL: DEFERRED GENITAL: DEFERRED NEUROLOGICAL: NORMAL SPEECH, MOTOR FUNCTION INTACT, SENSORY FUNCTION INTACT MUSCULOSKELETAL: NECK NONTENDER, FULL RANGE OF MOTION, BACK NONTENDER, FULL RANGE OF MOTION, EXTREMITIES: NONTENDER, FULL RANGE OF MOTION SKIN: COLOR PINK, DRY, NO TURGOR, NO RASH, NO LACERATIONS, NO ABRASIONS, NO CO NTUSIONS. LYMPHATIC: DEFERRED Results (Laboratory/Radiology) Laboratory/Radiology Laboratory Tests Test 10/26/25 11:16 10/26/25 13:29 White Blood Count 5.4 K/uL (4.8-10.8) Red Blood Count 4.82 MIL/uL (4.50-6.20) Hemoglobin 14.9 g/dL (14.0-18.0) Hematocrit 44.3 % (42-54) Mean Corpuscular Volume 91.9 fL (79-99) Mean Corpuscular Hemoglobin 30.9 pg (27.0-33.0) Mean Corpuscular Hemoglobin Concent 33.6 g/dL (32.0-36.0) Red Cell Distribution Width 13.0 % (11.0-15.5) Platelet Count 144 K/uL (130-400) Mean Platelet Volume 9.1 fL (7.5-10.5) Immature Granulocyte % (Auto) 0.4 % (0-1) Neutrophils (%) (Auto) 74.1 % (40.0-77.0) Lymphocytes (%) (Auto) 16.8 % (21.0-51.0) L Monocytes (%) (Auto) 7.6 % (3.0-13.0) Eosinophils (%) (Auto) 0.7 % (0.0-8.0) Basophils (%) (Auto) 0.4 % (0.0-5.0) Neutrophils # (Auto) 4.0 K/uL (1.8-7.7) Lymphocytes # (Auto) 0.9 K/uL (1.0-4.8) L Monocytes # (Auto) 0.4 K/uL (0.1-1.0) Eosinophils # (Auto) 0.04 K/uL (0.00-0.70) Basophils # (Auto) 0.02 K/uL (0.00-0.20) Absolute Immature Granulocyte (auto 0.02 K/uL (0-1) Nucleated Red Blood Cells 0.0 % (0.0-0.19) Sodium Level 136 mmol/L (136-145) Potassium Level 4.3 mmol/L (3.5-5.1) Chloride Level 104 mmol/L (101-111) Carbon Dioxide Level 27 mmol/L (21-32) Blood Urea Nitrogen 7 mg/dL (7-18) Creatinine 1.0 mg/dL (0.5-1.3) Glomerular Filtration Rate Calc 104 mL/min (>90) Random Glucose 102 mg/dL (70-105) Total Calcium 8.5 mg/dL (8.5-10.1) Urine Color YELLOW (YELLOW) Urine Appearance CLEAR (CLEAR) Urine pH 5.5 (5.0-8.0) Urine Specific [place] 1.027 (1.001-1.031) Urine Protein NEGATIVE mg/dL (NEGATIVE) Urine Glucose (UA) NEGATIVE mg/dL (NEGATIVE) Urine Ketones NEGATIVE mg/dL (NEGATIVE) Urine Occult Blood NEGATIVE (NEGATIVE) Urine Nitrate NEGATIVE (NEGATIVE) Urine Bilirubin NEGATIVE mg/dL (NEGATIVE) Urine Urobilinogen 3 mg/dL (0.2-1.0) H Urine Leukocyte Esterase NEGATIVE [place]/uL n consistent with hepatic steatosis. No focal hepatic lesion is confidently characterized on this noncontrast study. GALLBLADDER AND BILE DUCTS Gallbladder appears unremarkable. No radiopaque gallstones. No intrahepatic or extrahepatic biliary ductal dilatation. SPLEEN Splenomegaly with splenic length measuring approximately 15 cm. No focal splenic lesion identified. ADRENAL GLANDS Adrenal glands are normal in size and contour without focal mass. KIDNEYS, URETERS, AND BLADDER Mild right hydroureteronephrosis secondary to an obstructing distal right ureteric calculus at or near the vesicoureteric junction, measuring approximately 0.[address] attenuation of about 100 HU. Left kidney and ureter are normal in caliber without calculus. Urinary bladder is unremarkable. STOMACH AND BOWEL Stomach and bowel loops are normal in caliber without evidence of obstruction, enteritis, or colitis. No focal colonic wall thickening. APPENDIX Appendix is not confidently delineated; however, there are no secondary CT signs of acute appendicitis, including localized inflammatory fat stranding, focal cecal wall thickening, or loculated fluid collection in the right lower quadrant. PERITONEUM No free intraperitoneal air or fluid. LYMPH NODES No pathologically enlarged abdominal or pelvic lymph nodes. REPRODUCTIVE Visualized reproductive organs appear unremarkable for age and technique. VASCULATURE No abdominal aortic aneurysm. Major abdominal vessels are grossly unremarkable on this noncontrast study. BONES No aggressive osseous lesion. No acute fracture or destructive bony process. IMPRESSION * Obstructing distal right ureteric calculus at or near the vesicoureteric junction measuring approximately 0.5 cm with associated mild right hydroureteronephrosis, concordant with the reported right flank pain radiating to the right lower quadrant and testicle. * Hepatomegaly with diffuse hepatic steatosis. * Splenomegaly without focal splenic lesion. /[facility] Labs Reviewed?: Yes ED Course ED Course Orders Procedure Category Date Status Time Cbc With Differential LAB 10/26/25 Complete 11:02 Urinalysis Profile LAB 10/26/25 Complete 11:02 0.9%Nacl 1000ml (Ns PHA 10/26/25 Complete 1000ml) 11:30 Ketorolac PHA 10/26/25 Complete Tromethamine 30mg/Ml 11:30 Ondansetron 4mg PHA 10/26/25 Complete Tablet (Zofran 4mg 11:30 Ct Abdomen/Pelvis W/O CT 10/26/25 Resulted Contrast 11:02 Basic Metabolic Panel LAB 10/26/25 Complete 11:02 Ondansetron 4mg Inj PHA 10/26/25 Complete (Zofran 4mg Inj) 11:09 Ketorolac PHA 10/26/25 Complete Tromethamine 30mg/Ml 11:09 Ondansetron 4mg Inj PHA 10/26/25 Complete (Zofran 4mg Inj) 11:30 Tamsulosin Hcl PHA 10/26/25 Complete (Flomax) 12:30 Ibuprofen 800 Mg Tab PHA 10/26/25 Verified (Motrin) 14:30 Ketorolac PHA 10/26/25 Verified Tromethamine 30mg/Ml 14:30 Current Medications Medications (Trade) Dose Ordered Sig/Ezekiel Route PRN Reason Start Time Stop Time Status Last Admin Dose Admin Ketorolac Tromethamine (toRADol) 30 mg ONCE ONCE IVP 10/26/25 11:30 10/26/25 11:31 DC 10/26/25 11:24 Ketorolac Tromethamine (toRADol) 30 mg STK-MED ONCE .ROUTE 10/26/25 11:09 10/26/25 11:09 DC Ondansetron HCl (zoFRAN 4MG TABLET) 4 mg ONCE ONCE PO 10/26/25 11:30 10/26/25 11:20 DC Ondansetron HCl (zoFRAN 4MG INJ) 4 mg ONCE ONCE IVP 10/26/25 11:30 10/26/25 11:31 DC 10/26/25 11:24 Ondansetron HCl (zoFRAN 4MG INJ) 4 mg STK-MED ONCE .ROUTE 10/26/25 11:09 10/26/25 11:09 DC Sodium Chloride 1,000 ml @ 0 mls/hr ONCE ONCE IV 10/26/25 11:30 10/26/25 11:31 DC 10/26/25 11:24 Tamsulosin HCl (FloMAX) 0.8 mg ONCE ONCE PO 10/26/25 12:30 10/26/25 12:31 DC 10/26/25 12:39 Vital Signs Date Time Temp Pulse Resp B/P (MAP) Pulse Ox O2 Delivery O2 Flow Rate FiO2 10/26/25 14:13 98.8 56 18 140/79 99 Room Air* 0 21 10/26/25 11:00 98.4 82 20 150/88 99 1425/cats can demonstrates a right urolithiasis with hydro nephrosis. BUN and creatinine are completely normal, there was no leukocytosis there was no urinary tract infection. Pain is markedly reduced after treatment. Patient will be discharged home with ibuprofen/Flomax 0.8 Referred to patient Medical Decision Making MDM MDM: Differential diagnosis: Pyelonephritis/urolithiasis/ureteral colic/electrolyte imbalance/dehydration Rationale: Tests considered and ordered secondary to shared decision making include: Labs/radiology Previous outside records reviewed: Old ER visits. Risk of complication and/or morbidity or mortality of patient management: None Medications-Per medication reconciliation Need for hospitalization: Patient does not meet criteria for hospitalization. Need for emergency major/minor surgery: No none There are no social concerns with this patient. Prescription drug management ketorolac/Flomax 0.8 Prescriptions will include symptomatic care Patient's prior external medical records from other ER visits were reviewed by me as indicated. Prior testing and results from previous visits were reviewed. Prior tests were taken into account with medical decision making and resource utilization, independent historian/historians were used to obtain complete medical history. I independently interpreted the test that were performed, results were reviewed by me and considered findings on radiology if ordered. Medical management and examination interpretation discussions were had by me with other qualified healthcare professionals as indicated for the patient's care. DX & DISP Disposition: Discharge Departure Impression: Primary Impression: Right renal stone Additional Impression: Hydronephrosis Condition: Stable Scripts Ketorolac Tromethamine (Ketorolac Tromethamine) 10 Mg Tablet 1 TAB PO Q6HPRN PRN for pain, #20 TAB 0 Refills Prov: IRA BENSON 10/26/25 Tamsulosin HCl (Flomax) 0.4 Mg Cap.er.24h 0.8 MG PO DAILY for 15 Days, #15 CAPSULE. Prov: IRA BENSON 10/26/25 Additional Instructions: Follow-up with primary care provider in 1 to 2 days. Take medications as directed here in the emergency room. Okay to continue home medications unless otherwise discussed during your visit in the emergency room today. Return to your nearest emergency room if symptoms worsen or if there is no improvement. Call 911 if you need immediate assistance. Take Tylenol or Motrin [id number] as needed and if no contraindications are present. Increase oral hydration. A wound culture or urine culture was ordered here in the emergency room department please follow-up with primary care provider and advise them to get repeat ports from our facility. If you had any Neo wrap/splints that were applied here, please do not remove them until you see your primary care or specialty. Increase your water intake. Take Flomax as directed until gone. Take ketorolac as directed every 6 hours for pain Call urologist for an appointment in the next 1-2 days. Referrals: LOPEZ STILES (PCP) PRAFUL MICHAEL MD Time of Disposition: 14:25 I have reviewed the case, and I agree with, Diagnosis and Plan IRA BENSON GRAPHIC DESIGN INTERN Oct 26, 2025 11:04
[2025-10-26 11:20] LABS: IMMATURE GRANULOCYTE ABSOLUTE 0.02 K/uL (0-1); NUCLEATED RED BLOOD CELLS 0.0 % (0.0-0.19); PLATELET COUNT (AUTO) 144 K/uL (130-400); RED BLOOD CELL COUNT(AUTO) 4.82 MIL/uL (4.50-6.20); RED CELL DISTRIBUTION WIDTH 13.0 % (11.0-15.5); WHITE BLOOD COUNT (AUTO) 5.4 K/uL (4.8-10.8)
[2025-10-26] MEDS: 0.9%NACL 1000ML 1,000 ML IV ONE (11:24)
[2025-10-26 11:38] LABS: CREATININE 1.0 mg/dL (0.5-1.3); GLOMERULAR FILTR. RATE CALC 104.0 mL/min (>90); GLUCOSE,RANDOM 102.0 mg/dL (70-105); SODIUM SERUM 136.0 mmol/L (136-145); UREA NITROGEN, BLOOD 7.0 mg/dL (7-18)
--- NOTE | 2025-10-26 12:12 | HMCIMG ---
STUDY CT ABDOMEN AND PELVIS WITHOUT IV CONTRAST HISTORY Right flank pain radiating to right lower quadrant and right testicle TECHNIQUE Axial noncontrast CT of the abdomen and pelvis with multiplanar reformations. COMPARISON CT abdomen and pelvis with IV contrast dated 08/08/2025, 22:24 EDT. FINDINGS LUNG BASES Lung bases are clear. No pleural effusion. LIVER Hepatomegaly with craniocaudal liver span measuring approximately 17 cm. Diffuse low attenuation consistent with hepatic steatosis. No focal hepatic lesion is confidently characterized on this noncontrast study. GALLBLADDER AND BILE DUCTS Gallbladder appears unremarkable. No radiopaque gallstones. No intrahepatic or extrahepatic biliary ductal dilatation. SPLEEN Splenomegaly with splenic length measuring approximately 15 cm. No focal splenic lesion identified. ADRENAL GLANDS Adrenal glands are normal in size and contour without focal mass. KIDNEYS, URETERS, AND BLADDER Mild right hydroureteronephrosis secondary to an obstructing distal right ureteric calculus at or near the vesicoureteric junction, measuring approximately 0.[address] attenuation of about 100 HU. Left kidney and ureter are normal in caliber without calculus. Urinary bladder is unremarkable. STOMACH AND BOWEL Stomach and bowel loops are normal in caliber without evidence of obstruction, enteritis, or colitis. No focal colonic wall thickening. APPENDIX Appendix is not confidently delineated; however, there are no secondary CT signs of acute appendicitis, including localized inflammatory fat stranding, focal cecal wall thickening, or loculated fluid collection in the right lower quadrant. PERITONEUM No free intraperitoneal air or fluid. LYMPH NODES No pathologically enlarged abdominal or pelvic lymph nodes. REPRODUCTIVE Visualized reproductive organs appear unremarkable for age and technique. VASCULATURE No abdominal aortic aneurysm. Major abdominal vessels are grossly unremarkable on this noncontrast study. BONES No aggressive osseous lesion. No acute fracture or destructive bony process. IMPRESSION * Obstructing distal right ureteric calculus at or near the vesicoureteric junction measuring approximately 0.5 cm with associated mild right hydroureteronephrosis, concordant with the reported right flank pain radiating to the right lower quadrant and testicle. * Hepatomegaly with diffuse hepatic steatosis. * Splenomegaly without focal splenic lesion. /[place]
--- NOTE | 2025-10-26 13:35 | NUR ---
RECEIVED REPORT FROM [facility]. ASSUMED CARE OF THIS PATIENT AT THIS TIME.
[2025-10-26 13:47] LABS: APPEARANCE,URINE CLEAR (CLEAR); GLUCOSE, URINE (UA) NEGATIVE (NEGATIVE); LEUKOCYTE ESTERASE ,URINE NEGATIVE Leu/uL (NEGATIVE); NITRATE,URINE NEGATIVE (NEGATIVE); OCCULT BLOOD,URINE NEGATIVE (NEGATIVE)
[2025-10-26 13:58] LABS: ADD UA MICROSCOPIC NO
[2025-10-26] MEDS ORDERED: TAMS-55 PO (14:26)
[2025-10-26] MEDS ORDERED: KETO10TA2 PO (14:26)
[2025-10-26 15:05] VITALS: BP 140/79; PULSE 56; RESP 18; TEMP 98.8; O2SAT 99
== END 2025-10-26 15:37 | disposition home or self-care (01) ==
LOC: EDH 10:59
DX: N13.2 Hydronephrosis with renal and ureteral calculous obstruction (principal); Z79.01 Long term (current) use of anticoagulants; Z79.1 Long term (current) use of non-steroidal anti-inflammatories (NSAID); Z87.442 Personal history of urinary calculi
CPT/HCPCS: 99284; 74176; 96374; 96361; 96375; 80048; 85025; 81003; 36415; 96376; J1885 ×2; J7030; J2405